=== PATIENT | male | born 1975 | race Hispanic/Latino ===

== ENCOUNTER 2018-12-01 17:46 | Emergency (ER) | payer OTHER ==
[2018-12-01] MEDS ORDERED: ACETAMINOPHEN-CODEINE 300/30MG TAB ONE (18:49)
[2018-12-01] MEDS ORDERED: KETOROLAC TROMETHAMINE 60 MG/2 ML VIAL ONE (18:49)
== END 2018-12-01 19:41 | disposition home or self-care (01) ==
LOC: EDH 17:46
DX: M10.9 Gout, unspecified (principal)
CPT/HCPCS: 96372 ×2; 99284; J1030 ×2; J1885